=== PATIENT | female | born 1995 | race Caucasian/White ===

== ENCOUNTER 2016-10-13 10:37 | Emergency (ER) | payer OTHER ==
--- NOTE | ~2016-10-13 | CR170 ---
[facility] A Service of [facility] & [facility] RADIOLOGY TEXT RESULTS PATIENT: GABRIEL NGUYEN LOCATION: SED : 95 UNIT #: [id number] AGE: [address]: Grisel Gonzales APRN SEX: F ORDER DR: [id number] [place] [id number] E MR#: [id number] Acc #: [id number] NAME: GABRIEL NGUYEN : 1995 SEX: F STUDY DATE/TIME: 10/13/2016 10:34 UNIT: SED ROOM: STUDY DESCRIPTION: CR Knee 2 Views Rt Attending Physician: Grisel Gonzales A.P.R.N. Ordering Physician: Grisel Gonzales A.P.R.N. Primary Care Physician: Sai Contreras Pa-C MEDICAL IMAGING REPORT This report is preliminary unless electronic signature is present. EXAM Right knee, 10/13/2016 HISTORY Pain started last night when the patient heard a pop. COMMENT 2 views of the right knee are reviewed. No comparison. No acute fracture, dislocation or radiopaque foreign body. No joint effusion. IMPRESSION Negative plain film assessment right knee. Dictated by... Filomena Rivera M.D. THIS IS AN ELECTRONICALLY VERIFIED REPORT Filomena Rivera M.D. at 10/14/2016 11:38 AM DEIDRA/madyson TD: 10/13/2016 23:08 JOB #: [id number] MEDICAL IMAGING REPORT
[~2016-10-13 10:37] MED LIST: BACTRIM DS TABL1 TA1 PO; BCP; BIRTH CONTROL PILL; CELEXA; CEPHALEXIN500 M1 PO; FAMOTIDINE PO; FIORICET 50-321 EACH; FLONASE 0.05% N16 G1; HYDROCODON-ACE1 EAC9 PO; KEFLEX; LEXAPRO PO; MOTRIN600 MG PO; NAPROSYN500 MG PO; NEXPLANON68 MG SQ; PERCOCET; PHENERGAN25 M1 PO; PRILOSEC20 MG PO; SUDAFED30 M1 PO; ZOFRAN PO; ZOLOFT; ZOLOFT PO; ZOLOFT50 MG PO
[2016-10-22] MEDS ORDERED: BIRTH CONTROL PILL (20:34)
== END 2016-10-13 11:40 | disposition home or self-care (01) ==
LOC: SED 10:37
DX: S83.411A Sprain of medial collateral ligament of right knee, initial encounter (principal); F32.9 Major depressive disorder, single episode, unspecified; F17.200 Nicotine dependence, unspecified, uncomplicated; X50.1XXA Overexertion from prolonged static or awkward postures, initial encounter; Y92.9 Unspecified place or not applicable
CPT/HCPCS: 73560; 99283

== ENCOUNTER 2016-10-22 21:16 | Emergency (ER) | payer OTHER | END 2016-10-22 21:42 | disposition home or self-care (01) | LOC: SED 21:16 | DX: S83.91XA Sprain of unspecified site of right knee, initial encounter (principal); F41.9 Anxiety disorder, unspecified; F32.9 Major depressive disorder, single episode, unspecified; F17.210 Nicotine dependence, cigarettes, uncomplicated; Z88.5 Allergy status to narcotic agent; Z88.8 Allergy status to other drugs, medicaments and biological substances; Z79.899 Other long term (current) drug therapy; X50.1XXA Overexertion from prolonged static or awkward postures, initial encounter; Y92.89 Other specified places as the place of occurrence of the external cause | CPT/HCPCS: 29530; 99283 ==

== ENCOUNTER 2016-11-21 05:10 | Emergency (ER) | payer OTHER | END 2016-11-21 05:20 | disposition home or self-care (01) | LOC: SED 05:10 | DX: J01.90 Acute sinusitis, unspecified (principal); F17.200 Nicotine dependence, unspecified, uncomplicated | CPT/HCPCS: 99282 ==

== ENCOUNTER 2016-12-18 21:19 | Emergency (ER) | payer OTHER ==
--- NOTE | ~2016-12-18 | EKG ---
PATIENT: GABRIEL NGUYEN UNIT #: [id number] Ventricular Rate: 72 BPM Atrial Rate: 72 BPM P-R Interval: 206 ms QRS Duration: 86 ms Q-T Interval: 382 ms QTC Calculation(Bezet): 418 ms P [place]: 20 degrees Calculated R [place]: 22 degrees Calculated T [place]: 10 degrees Diagnosis Line: Normal sinus rhythm with sinus arrhythmia Diagnosis Line: Normal ECG Diagnosis Line: When compared with ECG of 27-APR-2014 10:32, Diagnosis Line: No significant change was found Diagnosis Line: Confirmed by JOSUÉ MCLEAN MD ([id number]) on 12/20/2016 Diagnosis Line: 8:04:58 PM INTERPRETING MD: VINAY CABELLO
--- NOTE | ~2016-12-18 | CR72 ---
[facility]. [facility] A Service of [facility] & [facility] RADIOLOGY TEXT RESULTS PATIENT: GABRIEL NGUYEN LOCATION: SED : 95 UNIT #: [id number] AGE: [address]: Emanuel Gallegos MD SEX: F ORDER DR: [id number] [place] [id number] E MR#: [id number] Acc #: [id number] NAME: GABRIEL NGUYEN : 1995 SEX: F STUDY DATE/TIME: 12/18/2016 22:27 UNIT: SED ROOM: STUDY DESCRIPTION: CR Chest Single View Portable Attending Physician: Emanuel Gallegos M.D. Ordering Physician: Emanuel Gallegos M.D. Primary Care Physician: Sai Contreras Pa-C MEDICAL IMAGING REPORT This report is preliminary unless electronic signature is present. EXAM Portable chest 12/18/2016 HISTORY A 21-year-old female with chest pain for [address] chest 04/27/2014 FINDINGS Frontal chest demonstrates clear lungs. No pleural effusion or pneumothorax. Heart size and mediastinum normal. Pulmonary vasculature normal. IMPRESSION No acute cardiopulmonary findings Dictated by... Eitan Nelson M.D. THIS IS AN ELECTRONICALLY VERIFIED REPORT Eitan Nelson M.D. at 12/18/2016 11:10 PM JACLYN/konstantin TD: 12/18/2016 22:59 JOB #: [id number] MEDICAL IMAGING REPORT Page 1 of 1
[2016-12-18] MEDS ORDERED: PRENATAL VITAM1 EAC1 (21:33)
== END 2016-12-18 23:20 | disposition home or self-care (01) ==
LOC: SED 21:19
DX: R07.9 Chest pain, unspecified (principal); R10.9 Unspecified abdominal pain; R05 Cough; F17.210 Nicotine dependence, cigarettes, uncomplicated; Z88.5 Allergy status to narcotic agent; Z88.1 Allergy status to other antibiotic agents
CPT/HCPCS: 71010; 93005; 99284

== ENCOUNTER 2017-01-03 07:54 | Emergency (ER) | payer OTHER ==
--- NOTE | ~2017-01-03 | EKG ---
PATIENT: GABRIEL NGUYEN UNIT #: [id number] Ventricular Rate: 63 BPM Atrial Rate: 63 BPM P-R Interval: 220 ms QRS Duration: 78 ms Q-T Interval: 392 ms QTC Calculation(Bezet): 401 ms P [place]: 33 degrees Calculated R [place]: 19 degrees Calculated T [place]: 1 degrees Diagnosis Line: Sinus rhythm with 1st degree A-V block Diagnosis Line: Otherwise normal ECG Diagnosis Line: No previous ECGs available Diagnosis Line: Confirmed by LILA WORTHY MD ([id number]) on Diagnosis Line: 01/06/2017 9:35:22 PM INTERPRETING MD: ZAYNAB CABELLO
[~2017-01-03 07:54] MED LIST changes: +PRENATAL VITAM1 EAC1
[2017-01-03 08:50] LABS: URINE SOURCE CLEAN CATCH
[2017-01-03 08:56] LABS: BASOPHIL% 0.4 % (0-2.5); EOSINOPHIL# 0.1 X10e3 (0-0.7); EOSINOPHIL% 0.8 % (0.0-7.0); HEMOGLOBIN 13.6 gm/dL (12.0-16.0); LYMPHOCYTE# 2.2 X10e3 (1.0-3.5); LYMPHOCYTE% 23.6 % (17.0-45.0); MEAN CELL VOLUME 87.8 FL (83-96); MEAN CORPUSCULAR HEMOGLOBIN 29.9 PG (28-34); MEAN PLATELET VOLUME 7.9 FL (6.5-11.5); MONOCYTE# 0.7 X10e3 (0-1.0); MONOCYTE% 7.4 % (3.0-12.0); NEUTROPHIL# 6.3 X10e3 (1.5-7.1); NEUTROPHIL% 67.8 % (40-75); PLATELET COUNT 265 X10e3 (140-420); RED BLOOD COUNT 4.56 X10e (3.90-5.30); RED CELL DISTRIBUTION WIDTH 13.1 % (11.0-15.5); WHITE BLOOD COUNT 9.3 X10e3 (4.0-10.5)
[2017-01-03 08:57] LABS: URINE APPEARANCE CLEAR; URINE BILIRUBIN NEG (NEG); URINE BLOOD NEG (NEG); URINE COLOR YELLOW; URINE GLUCOSE NEG (NORM); URINE KETONE NEG (NEG); URINE LEUKOCYTE ESTERASE NEG (NEG); URINE NITRATE NEG (NEG); URINE PH 5.5 (5-8); URINE PROTEIN NEG (NEG); URINE SPECIFIC GRAVITY 1.025 (1.003-1.035); URINE UROBILINOGEN 0.2 MG/DL (NORM)
[2017-01-03 08:58] LABS: DIFF IND NO; MICRO INDICATED? NO
[2017-01-03 09:14] LABS: CALCIUM SERUM 8.9 mg/dL (8.4-10.2); CREATININE SERUM 0.4 mg/dL (0.6-1.4); GLOM FILT RATE Estimated 148.9 mL/min (>60); POTASSIUM 3.7 mmol/L (3.5-5.1)
== END 2017-01-03 09:55 | disposition home or self-care (01) ==
LOC: SED 07:54
PROVIDERS: Emergency Medicine
DX: G44.209 Tension-type headache, unspecified, not intractable (principal); F32.9 Major depressive disorder, single episode, unspecified; F17.200 Nicotine dependence, unspecified, uncomplicated; Z88.5 Allergy status to narcotic agent; Z88.8 Allergy status to other drugs, medicaments and biological substances
CPT/HCPCS: 80048; 81003; 85025; 93005; 96374; 96375; 99283; J2405

== ENCOUNTER 2017-02-04 11:29 | Emergency (ER) | payer OTHER ==
[2017-02-04 11:53] LABS: BASOPHIL% 0.4 % (0-2.5); EOSINOPHIL# 0.1 X10e3 (0-0.7); EOSINOPHIL% 0.9 % (0.0-7.0); HEMATOCRIT 40.2 % (35.0-45.0); HEMOGLOBIN 13.6 gm/dL (12.0-16.0); LYMPHOCYTE# 1.9 X10e3 (1.0-3.5); LYMPHOCYTE% 20.8 % (17.0-45.0); MEAN CELL VOLUME 87.8 FL (83-96); MEAN CORPUSCULAR HEMOGLOBIN 29.8 PG (28-34); MEAN CORPUSCULAR HGB CONC 33.9 g/dL (30-36); MEAN PLATELET VOLUME 7.5 FL (6.5-11.5); MONOCYTE# 0.7 X10e3 (0-1.0); MONOCYTE% 7.4 % (3.0-12.0); NEUTROPHIL# 6.5 X10e3 (1.5-7.1); NEUTROPHIL% 70.5 % (40-75); PLATELET COUNT 315 X10e3 (140-420); RED BLOOD COUNT 4.58 X10e (3.90-5.30); RED CELL DISTRIBUTION WIDTH 13.7 % (11.0-15.5); WHITE BLOOD COUNT 9.3 X10e3 (4.0-10.5)
[2017-02-04 11:58] LABS: URINE SOURCE CLEAN CATCH
[2017-02-04 11:58] LABS: DIFF IND NO
[2017-02-04 12:02] LABS: URINE APPEARANCE SL CLOUDY; URINE BLOOD NEG (NEG); URINE COLOR YELLOW; URINE GLUCOSE NEG (NORM); URINE NITRATE NEG (NEG); URINE PROTEIN NEG (NEG); URINE UROBILINOGEN 0.2 MG/DL (NORM)
[2017-02-04 12:05] LABS: MICRO INDICATED? NO; URINE BILIRUBIN NEG (NEG); URINE KETONE 3+ (NEG); URINE LEUKOCYTE ESTERASE NEG (NEG)
[2017-02-04 12:13] LABS: ALBUMIN SERUM 3.7 g/dL (3.5-5.0); BILIRUBIN, DIRECT 0.1 mg/dL (0.0-0.2); BILIRUBIN,INDIRECT 0.5 mg/dL (0.0-0.9); BILIRUBIN,TOTAL 0.6 mg/dL (0.2-2.0); CALCIUM SERUM 8.7 mg/dL (8.4-10.2); CREATININE SERUM 0.4 mg/dL (0.6-1.4); GLOM FILT RATE Estimated 148.9 mL/min (>60); POTASSIUM 3.5 mmol/L (3.5-5.1); PROTEIN TOTAL SERUM 7.3 g/dL (6.0-8.3)
== END 2017-02-04 14:05 | disposition home or self-care (01) ==
LOC: SED 11:29
PROVIDERS: Student in an Organized Health Care Education/Training Program
DX: O21.1 Hyperemesis gravidarum with metabolic disturbance (principal); O99.331 Smoking (tobacco) complicating pregnancy, first trimester; F17.200 Nicotine dependence, unspecified, uncomplicated
CPT/HCPCS: 36415; 80048; 80076; 81003; 83690; 85025; 96365; 99284; J2550